=== PATIENT | male | born 1950 | race Caucasian/White ===

== ENCOUNTER 2019-09-30 08:31 | Outpatient (CLI) | payer BC, SELFPAY ==
--- NOTE | 2019-09-30 08:36 | USCV_ITS ---
Rodríguez Charlie Age: 69 Gender: M : 1950 Exam Date: 09/30/2019 08:53 Ordering Phys: Kevin Dixon MD Technologist: Nohelia Rucker Exam Location: [facility] – [place] Indication: TIA BP: 134 / 66 HR: 66 Rhythm: Sinus Technical Quality: Adequate MEASUREMENTS (Male / Female) Normal Values 2D ECHO LV Diastolic Diameter PLAX 3.9 cm 4.2 - 5.9 / 3.9 - 5.3 cm LV Systolic Diameter PLAX 2.7 cm LV Chamber Size 3.7 cm IVS Diastolic Thickness 1.2 cm 0.6 - 1.0 / 0.6 - 0.9 cm IVS Systolic Thickness 1.4 cm LVPW Diastolic Thickness 1.7 cm 0.6 - 1.0 / 0.6 - 0.9 cm LVPW Systolic Thickness 1.5 cm RV Chamber Size 3.4 cm LVOT Diameter 2.0 cm LV Ejection Fraction 2D Teich 57.5 % LV Ejection Fraction MOD 2C 57.0 % LV Ejection Fraction 2C AL 59.7 % LA Diameter 3.4 cm LA Width 2.7 cm LA Height 3.7 cm RA Width 2.3 cm RA Height 4.3 cm Aorta at Sinotubular Diameter 3.4 cm M-MODE LV Diastolic Diameter MM 5.0 cm 4.2 - 5.9 / 3.9 - 5.3 cm LV Systolic Diameter MM 3.3 cm LV Ejection Fraction MM Teich 60.9 % IVS Diastolic Thickness MM 0.8 cm 0.6 - 1.0 / 0.6 - 0.9 cm IVS Systolic Thickness MM 1.3 cm LVPW Diastolic Thickness MM 0.7 cm 0.6 - 1.0 / 0.6 - 0.9 cm LVPW Systolic Thickness MM 0.7 cm Aortic Annulus Diameter 3.4 cm LA Ao Ratio MM 1.0 MV E Point Septal Separation 0.4 cm DOPPLER AV Peak Velocity 146.0 cm/s LVOT Peak Velocity 111.0 cm/s AV Area Cont Eq vti 1.8 cm squared AV Area Cont Eq pk 2.4 cm squared MV Area PHT 3.1 cm squared Mitral E to A Ratio 1.0 MV E' Velocity 10.0 cm/s Mitral E to MV E' Ratio 8.9 Mitral E to LV E' Lateral Ratio 7.8 Mitral E to LV E' Septal Ratio 10.5 TR Peak Velocity 269.0 cm/s TR Peak Gradient 28.9 mmHg TV Peak E Velocity 81.0 cm/s Right Atrial Pressure 3.0 mmHg Pulmonary Artery Systolic Pressu 31.9 mmHg PV Peak Velocity 72.0 cm/s RV Acceleration Time 0.1 s RV Ejection Time 0.4 s RV AcT/ET 0.4 FINDINGS Left Ventricle Normal left ventricular size, systolic function and wall thickness, with no regional wall motion abnormalities. Grade I/IV diastolic dysfunction (abnormal relaxation filling pattern), normal to mildly elevated filling pressures. Left ventricular ejection fraction is estimated at 55-60 %. Right Ventricle Normal right ventricular size and systolic function. Mild pulmonary hypertension, RVSP 31.9 mmHg. Right Atrium The right atrium is normal in size. Left Atrium The left atrium is normal in size. Mitral Valve Structurally normal mitral valve. Trace mitral valve regurgitation. Aortic Valve Structurally normal aortic valve without significant sclerosis or stenosis. There is no aortic regurgitation. Tricuspid Valve Structurally normal tricuspid valve. Trace tricuspid valve regurgitation. Pulmonic Valve Pulmonic valve not well visualized. Pericardium Normal pericardium without effusion. Aorta Normal ascending aorta dimension. CONCLUSIONS Normal left ventricular size, systolic function and wall thickness, with no regional wall motion abnormalities. Grade I/IV diastolic dysfunction (abnormal relaxation filling pattern), normal to mildly elevated filling pressures. Left ventricular ejection fraction is estimated at 55-60 %. Normal right ventricular size and systolic function. Mild pulmonary hypertension, RVSP 31.9 mmHg. Structurally normal mitral valve. Trace mitral valve regurgitation. There are no prior echocardiogram studies to compare. Dr. Alex Li MD (Electronically Signed) Final Date: 30 September 2019 17:47 S
== END 2019-09-30 08:32 | disposition home or self-care (01) ==
LOC: US 08:33
PROVIDERS: PCP Family Medicine; Visit Provider Family Medicine
DX: G45.9 Transient cerebral ischemic attack, unspecified (principal); I51.81 Takotsubo syndrome; I27.20 Pulmonary hypertension, unspecified
CPT/HCPCS: 93306

== ENCOUNTER 2022-03-05 15:59 | Emergency (ER) | payer MEDICARE, BC, SELFPAY ==
[2022-03-05 16:46] VITALS: BP 136/78; PULSE 76; RESP 16; TEMP 36.8; O2SAT 99
--- NOTE | 2022-03-05 16:58 | ED_ITS ---
Documented by User: MÓNICA Richey 03/05/22 17:00 HPI - Extremity Injury (Lower) General: Chief Complaint: Extremity Injury, Lower Stated Complaint: Left ankle injury Time Seen by Provider: 03/05/22 16:58 Source: patient Mode of arrival: ambulatory Limitations: no limitations History of Present Illness: Patient is a 71-year-old male who presents to ED today with a concern for a blood clot to his left lower extremity. He states 4 days ago he was chopping wood when one of the wood blocks came back and struck him to his left anterior ankle. He states since he has noticed swelling and bruising to the area and yesterday began noticing pain in his calf. He states he contacted Lai Gamboa who instructed him to come to the ED for ultrasound evaluation for a DVT. [facility] ED PFSH: Medical History (Updated 03/06/22 @ 01:12 by MÓNICA Jean) No pertinent family history Surgical History (Updated 03/06/22 @ 01:12 by MÓNICA Jean) No pertinent past surgical history Course Vital Signs: Vital signs: Vital Signs Temperature 98.2 F 03/05/22 16:46 Pulse Rate 66 03/05/22 18:09 Respiratory Rate 13 03/05/22 18:09 Blood Pressure 134/84 03/05/22 18:09 Pulse Oximetry 98 03/05/22 18:09 Oxygen Delivery Me thod 03/05/22 16:46 MDM - Extremity Injury (Lower) Lab Data Radiology Impressions Ankle X-Ray 03/05/22 16:58 IMPRESSION: No acute fracture. Venous Duplex 03/05/22 16:58 IMPRESSION: No evidence of deep vein thrombosis. Discharge Plan Discharge Patient Disposition: Home Clinical Impression: Contusion of left lower leg Qualifiers: Encounter type: initial encounter Qualified Code(s): S80.12XA - Contusion of left lower leg, initial encounter Condition: Stable Discharge Orders: Discharge ED (Routine); Ordered 03/05/22 Ordered By: Chago Bynum Referrals: Kevin Dixon MD [Primary Care Provider] - Discharge Diet: Regular Discharge Activity: Increase activity as tolerated Activity Restrictions/Additional Instructions: Follow-up with medical provider as directed in the next 5-7 days for reevaluation. Continue taking all home medications as previously prescribed. Return to the ER or your medical provider if condition worsens. Please read and understand discharge instructions. Thank you for choosing [facility] for your healthcare needs today. Please realize this is an emergency room and that we are providing you with a medical screening exam and this may not be complete and all inclusive of all the testing and or work up that you may need to determine your ailment or severity of your illness. It is very important that you follow up as instructed or that you return to the Emergency Department should you have concerns or if your condition changes or worsens in any way. Sign Out Sign Out Data: Patient Sign Out occurred on 03/05/22 at 17:11. Patient's care was discussed, and care was transferred from to MÓNICA Jean. Coding Level of Care Code ED Epic [facility] Exam Comprehensive Documented by User: MÓNICA Jean 03/06/22 01:14 HPI - Extremity Injury (Lower) General: Chief Complaint: Extremity Injury, Lower Stated Complaint: Left ankle injury Time Seen by Provider: 03/05/22 16:58 Review of Systems Const: Denies: fever(s), chills or fatigue Eyes: Denies: change in vision or eye discomfort ENMT: Denies: throat pain, odynophagia, nasal discharge or nasal congestion Card: Denies: chest pain, palpitations, edema, swelling of feet/ankles, dyspnea on exertion or orthopnea Resp: Denies: dyspnea, productive cough or non-productive cough GI: Denies: abdominal pain, nausea, vomiting, diarrhea, constipation or hem atochezia : Denies: flank pain, difficulty urinating, dysuria or hematuria Musc: Reports: extremity pain (left lower leg pain) and extremity swelling (left lower leg); Denies: neck pain or back pain Skin/Breast: Denies: rash or new lesions Neuro: Denies: headache(s), numbness in extremities or weakness in extremities [facility] ED PFSH: Medical History (Updated 03/06/22 @ 01:12 by MÓNICA Jean) No pertinent family history Surgical History (Updated 03/06/22 @ 01:12 by MÓNICA Jean) No pertinent past surgical history Physical Exam Const: COMMON NORMALS: patient oriented x3 HENMT: COMMON NORMALS: normocephalic HEAD & SCALP: normocephalic MOUTH: Normal oral and palatal mucosa present THROAT: posterior oropharynx normal and uvula midline Neck/C-Spine: COMMON NORMALS: supple GENERAL: Yes normal visual inspection Resp: COMMON NORMALS: normal respiratory effort, No retractions, No use of accessory muscles and clear to auscultation bilaterally AUSCULTATION: clear to auscultation bilaterally Cardio: COMMON NORMALS: regular rate, regular rhythm, S1 normal heart sound pr esent, S2 normal heart sound present, No gallops present (Cardio), No clicks present (Cardio), No murmurs present (Cardio) and Peripheral pulses 2+ throughout RATE: regular rate RHYTHM: regular rhythm HEART SOUNDS: S1 normal heart sound present and S2 normal heart sound present PERIPHERAL PULSES: Peripheral pulses 2+ throughout GI: COMMON NORMALS: Normal to inspection, nondistended, normoactive bowel sounds present, Soft to palpation, non-tender and no masses PALPATION: Yes Soft to palpation : COMMON NORMALS: Yes no CVA tenderness BLADDER/KIDNEY EXAM: Yes no CVA tenderness Back/Pelvis: COMMON NORMALS: no CVA tenderness Extremity: NARRATIVE EXTREMITY EXAM: On patient's left lower leg anterior side just above ankle he has some tenderness and ecchymosis. Neuro: COMMON NORMALS: patient oriented x3 GAIT: Yes Normal gait present Skin: GENERAL SKIN EXAM: dry skin Course Vital Signs: Vital signs: Vital Signs Temperature 98.2 F 03/05/22 16:46 Pulse Rate 66 03/05/22 18:09 Respiratory Rate 13 03/05/22 18:09 Blood Pressure 134/84 03/05/22 18:09 Pulse Oximetry 98 03/05/22 18:09 Oxygen Delivery Me thod 03/05/22 16:46 MDM - Extremity Injury (Lower) Medical Decision Making Patient is a 71-year-old male comes in the ED with left leg pain. Patient states that about 5 days ago a piece of wood hit his left lower leg causing him some pain and bruising. Patient was sent here by his PCP to get ultrasound to check for blood clot. Denies any other symptoms. Vitals are stable. On patient's left lower leg anterior side just above ankle he has some tenderness and ecchymosis. Rest of exam is benign. Ultrasound venous duplex of left lower extremity showed no evidence of DVT. Left ankle x-ray showed no evidence of any fractures. Patient was diagnosed with contusion of left lower leg and was stable for discharge home. Told to follow-up with PCP in the next week for reevaluation. Patient understood and agreed with plan. Lab Data Radiology Impressions Ankle X-Ray 03/05/22 16:58 IMPRESSION: No acute fracture. Venous Duplex 03/05/22 16:58 IMPRESSION: No evidence of deep vein thrombosis. Discharge Plan Discharge Patient Disposition: Home Clinical Impression: Contusion of left lower leg Qualifiers: Encounter type: initial encounter Qualified Code(s): S80.12XA - Contusion of left lower leg, initial encounter Condition: Stable Discharge Orders: Discharge ED (Routine); Ordered 03/05/22 Ordered By: Chago Bynum Referrals: Kevin Dixon MD [Primary Care Provider] - Discharge Diet: Regular Discharge Activity: Increase activity as tolerated Activity Restrictions/Additional Instructions: Follow-up with medical provider as directed in the next 5-7 days for reevaluation. Continue taking all home medications as previously prescribed. Return to the ER or your medical provider if condition worsens. Please read and understand discharge instructions. Thank you for choosing [facility] for your healthcare needs today. Please realize this is an emergency room and that we are providing you with a medical screening exam and this may not be complete and all inclusive of all the testing and or work up that you may need to determine your ailment or severity of your illness. It is very important that you follow up as instructed or that you return to the Emergency Department should you have concerns or if your condition changes or worsens in any way. Sign Out Sign Out Data: Patient Sign Out occurred on 03/05/22 at 17:11. Patient's care was discussed, and care was transferred from to MÓNICA Jean. Coding Level of Care Code ED Epic [facility] Exam Comprehensive
--- NOTE | 2022-03-05 16:58 | USR_ITS ---
PROCEDURE INFORMATION: Exam: US Duplex Left Lower Extremity Veins, Limited Exam date and time: 03/05/2022 5:15 PM Age: 71 years old Clinical indication: Pain; Leg, lower; Left; Additional info: Calf pain following injury to ankle TECHNIQUE: Imaging protocol: Real-time Duplex ultrasound of the Left Lower Extremity with 2-D lilly scale, color Doppler flow and spectral waveform analysis with image documentation. Limited exam focused on the left lower extremity veins. COMPARISON: US soft tissue/extremity [id number] 03/13/2021 11:15 AM FINDINGS: Left deep veins: Unremarkable. The common femoral, femoral, proximal profunda femoral and popliteal veins are patent without thrombus. Normal Doppler waveforms. Normal compressibility and/or augmentation response. Left superficial veins: Unremarkable. Saphenofemoral junction is patent without thrombus. Soft tissues: Unremarkable. US/[place] [id number] IMPRESSION: No evidence of deep vein thrombosis.
--- NOTE | 2022-03-05 16:58 | XRR_ITS ---
PROCEDURE INFORMATION: Exam: XR Left Ankle Exam date and time: 03/05/2022 5:09 PM Age: 71 years old Clinical indication: Injury or trauma; Other: Wood fell on foot; Swelling (edema) and other: Bruising; Ankle and foot; Left; Additional info: Injury; Get distal tib/fib TECHNIQUE: Imaging protocol: Radiologic exam of the Left ankle. Views: 3 or more views. COMPARISON: No relevant prior studies available. FINDINGS: Bones/joints: Alignment is normal. No acute fracture. No joint effusion Soft tissues: Subtle edema anterior and posterior to the ankle. XR/XR ankle LT min 3V* [id number] IMPRESSION: No acute fracture.
[2022-03-05 18:09] VITALS: BP 134/84; PULSE 66; RESP 13; O2SAT 98
== END 2022-03-05 18:03 | disposition home or self-care (01) ==
PROVIDERS: Emergency Provider Physician Assistant; PCP Family Medicine
DX: S80.12XA Contusion of left lower leg, initial encounter (principal); W20.8XXA Other cause of strike by thrown, projected or falling object, initial encounter
CPT/HCPCS: 73610; 93971; 99284